=== PATIENT | male | born 1960 | race Caucasian/White ===

== ENCOUNTER 2018-01-15 11:05 | Emergency (ER) | END 2018-01-15 13:48 | disposition home or self-care (01) ==

== ENCOUNTER 2018-01-18 07:46 | Emergency (ER) | END 2018-01-18 08:14 | disposition home or self-care (01) ==

== ENCOUNTER 2018-01-25 07:44 | Emergency (ER) | END 2018-01-25 08:23 | disposition home or self-care (01) ==

== ENCOUNTER 2018-01-27 07:22 | Emergency (ER) | END 2018-01-27 08:35 | disposition home or self-care (01) ==